=== PATIENT | male | born 1950 | race Caucasian/White ===

== ENCOUNTER → 2017-07-17 | Day surgery (SDC) | payer MEDICARE, OTHER ==
[~2017-07-17] MED LIST: Lactated Ringers 1,000 ML IV SCH; Propofol 200 MG/20 ML SDV IV ONE
--- NOTE | 2017-07-17 12:19 | LETTER ---
07/17/2017 AWA [facility]. [address] [place] [address] RE: BARAK DESIR : 1950 Dear Wesley: Mr. Barak Desir has had his EGD. For the most part, his distal esophagus looks fine. I do not see any signs of any Mustafa's changes or esophagitis. He does have spontaneous reflux but there is no hernia visualized. So whatever treatment we are giving him is working well. He does have some antral gastritis and mild duodenitis. I did biopsies and those will be forthcoming in the near future. He had 5 or 6 adenomatous polyps in his fundus. We took a couple them off, they are classic in appearance, and appeared completely benign. These require no followup. I am trying to get one of his biopsies to be used for a CAROLE test as a formal CAROLE was not done during the scope, which was an oversight on my part. I will try to get that for you as soon as I can. Thanks for the referral. Respectfully, AMELIA/PAM /[id number]
--- NOTE | 2017-07-17 12:22 | OR ---
DATE OF OPERATION: 07/17/2017 PREOPERATIVE DIAGNOSIS: CHRONIC GASTROESOPHAGEAL REFLUX DISEASE. POSTOPERATIVE DIAGNOSIS: CHRONIC GASTROESOPHAGEAL REFLUX DISEASE. SURGEON: Nirav Martinez MD PROCEDURE: EGD WITH POLYP REMOVAL X2, BIOPSIES X3. 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 COMPLICATIONS: None. SPECIMEN: 1. Duodenal biopsy x1. 2. Antral biopsy x2. 3. Fundal polyps x2. FINDINGS: 1. Full-length EGD. 2. Mild duodenitis at duodenal bulb. 3. Antral gastritis, chronic in appearance. 4. Adenomatous polyps, fundus, multiple. 5. Spontaneous GERD without associated hiatal hernia, no distal esophagitis, stricturing, ulceration, or Mustafa's changes. RECOMMENDATIONS: Medical followup with KIRBY Castellon. INDICATIONS: The patient was sent for an issue of chronic GERD, it had been recently getting worse. He is controlled with proton pump therapy in the form of Dexilant or Prilosec. It has been about five years since his last EGD. DESCRIPTION OF PROCEDURE: The patient was prepped and draped, placed in left lateral decubitus position. A lubricated Olympus gastroscope was inserted and easily intubated in the esophagus. Esophageal lining was benign in its entire course. The Z-line was crisp and sharp at 39 cm. There was no distal esophagitis, stricturing, ulceration, or Mustafa's changes seen. Spontaneous reflux was visualized. The scope was advanced into the stomach through the pylorus into the second portion of duodenum. This was benign. The bulb had some very mild inflammation, signs of duodenitis but no ulceration. Biopsy was taken. The scope was brought back into the stomach, retroflexed, the upper fundus and cardia were benign other than some adenomatous polyps. All benign in appearance. Two of them were removed for pathological confirmation. No other lesions were seen. Upon straightening, the patient does have antral gastritis, chronic in appearance. Biopsies of that area were taken. There were no other masses, polyps, lesions, or signs of ulceration. Air was suctioned from the stomach. The scope was brought back up into the distal esophagus. The Z-line again was crisp and sharp. No signs of any Mustafa's. No other biopsies were taken. The scope was removed without complication. AMELIA/PAM /[id number]
== END ==
LOC: CC.SDS 08:29
PROVIDERS: ATTEND Family Medicine
DX: K31.7 Polyp of stomach and duodenum (principal); K31.811 Angiodysplasia of stomach and duodenum with bleeding; K21.9 Gastro-esophageal reflux disease without esophagitis; F41.9 Anxiety disorder, unspecified; Z90.49 Acquired absence of other specified parts of digestive tract; Z90.89 Acquired absence of other organs
CPT/HCPCS: 88305; J2704; J7120